=== PATIENT | female | born 1975 | race African-American/Black ===

== ENCOUNTER 2025-02-20 13:48 | Inpatient (IN) | payer MEDICAID ==
[~2025-02-20] VITALS: Ht 167.6 cm; Wt 90.7 kg
[2025-02-20 13:56] VITALS: O2SAT 98
[2025-02-20 15:24] LABS: BASOPHILS % 0.5 % (0.0-2.0); EOSINOPHILS % 0.2 % (0.0-5.0); HEMATOCRIT. 44.9 % (36.0-48.0); HEMOGLOBIN. 14.4 g/dL (12.0-16.0); LYMPHOCYTES % 17.4 % (20.0-50.0); MEAN PLATELET VOLUME 8.4 fl (7.4-10.4); MONOCYTES % 8.2 % (2.0-8.0); NEUTROPHILS % 73.7 % (40.0-76.0); PLATELET 468 x1000/uL (130-400); RED BLOOD CELL COUNT 4.93 mill/uL (4.2-5.4); RED CELL DISTRIBUTION WIDTH 16.8 % (11.6-14.6)
[2025-02-20 15:43] LABS: CREATININE 1.0 mg/dL (0.6-1.0)
[2025-02-20 15:44] LABS: ETHANOL BLOOD < 10 mg/dL (<10); UREA NITROGEN BLOOD 10 mg/dL (9-23)
[2025-02-20 15:45] LABS: ASPARTATE AMINOTRANSFERASE 27 IU/L (<34)
[2025-02-20 15:46] LABS: BILIRUBIN DIRECT 0.2 mg/dL (<=3.0); BILIRUBIN TOTAL 0.5 mg/dL (0.1-1.0); PROTEIN TOTAL 8.3 g/dL (6.0-8.3)
[2025-02-20 16:19] LABS: INFLUENZA TYPE A Presumptive Negative (Pres. Neg.)
[2025-02-20 16:20] LABS: INFLUENZA TYPE B Presumptive Negative (Pres. Neg.)
[2025-02-20 16:21] LABS: RESPIRATORY SYNCYTIAL VIRUS Not Detected (Not Detectd)
[2025-02-20] MEDS: POTASSIUM CHLORIDE 20MEQ/PACKET PO ONE (20:48)
[2025-02-22] MEDS ORDERED: ZOLPIDEM TARTRATE 5MG TABLET PO PRN (11:00)
[2025-02-22] MEDS ORDERED: LORAZEPAM 2MG/ML UD SYRINGE IV PRN (11:00)
[2025-02-22] MEDS ORDERED: HYDROCODONE/ACETAMINOPHEN 5/325MG TABLET PO PRN (11:00)
[2025-02-22] MEDS: OLANZAPINE 2.5MG TABLET PO SCH (11:00)
[2025-02-22] MEDS ORDERED: CLONIDINE 0.1MG TABLET PO PRN (11:00)
[2025-02-22] MEDS ORDERED: MAGNESIUM/ALUMINUM HYDROXIDE/SIMETHICONE 30ML UDC PO PRN (11:00)
[2025-02-22] MEDS ORDERED: ACETAMINOPHEN 325MG TABLET PO PRN (11:00)
[2025-02-22] MEDS ORDERED: ONDANSETRON HCL 4MG/2ML INJ IV PRN (11:00)
[2025-02-22] MEDS: ENOXAPARIN 40MG/0.4ML SYR SUBCUT SCH (12:00)
[2025-02-22] MEDS: LITHIUM CARBONATE 150 MG CAPSULE PO SCH (12:25)
[2025-02-22] MEDS: FLUOXETINE HCL 20MG CAPSULE PO SCH (12:26)
[2025-02-22 13:38] VITALS: BP 145/79; PULSE 20; RESP 18; TEMP 36.2512
[2025-02-22] MEDS: HALOPERIDOL LACTATE 5MG/ML VIAL IM PRN (19:10)
[2025-02-22 20:00] VITALS: BP 128/72; PULSE 124; RESP 16
[2025-02-22] MEDS: QUETIAPINE FUMARATE 200MG TABLET PO SCH (21:00)
[2025-02-23] MEDS: SODIUM CHLORIDE 0.9% 1,000 ML IV SCH (00:20)
[2025-02-23 08:00] VITALS: BP 136/56
[2025-02-23] MEDS: PANTOPRAZOLE SODIUM 40 MG/VIAL IV SCH (09:00)
[2025-02-23 12:00] VITALS: BP 136/66
[2025-02-23 20:00] VITALS: BP 134/88; PULSE 116; RESP 17; TEMP 36.2; O2SAT 97
[2025-02-24] VITALS: BP 159/83; PULSE 113; RESP 18; TEMP 36.6; O2SAT 97
[2025-02-24 04:00] VITALS: BP 160/96; PULSE 125; RESP 18; TEMP 36.4; O2SAT 97
[2025-02-24 07:05] LABS: BASOPHILS % 0.4 % (0.0-2.0); EOSINOPHILS % 0.3 % (0.0-5.0); HEMATOCRIT. 43.9 % (36.0-48.0); HEMOGLOBIN. 14.5 g/dL (12.0-16.0); LYMPHOCYTES % 20.8 % (20.0-50.0); MEAN PLATELET VOLUME 9.0 fl (7.4-10.4); MONOCYTES % 9.0 % (2.0-8.0); NEUTROPHILS % 69.5 % (40.0-76.0); PLATELET 443 x1000/uL (130-400); RED BLOOD CELL COUNT 4.85 mill/uL (4.2-5.4); RED CELL DISTRIBUTION WIDTH 17.0 % (11.6-14.6)
[2025-02-24 07:13] LABS: CREATININE 1.1 mg/dL (0.6-1.0); UREA NITROGEN BLOOD 15 mg/dL (9-23)
[2025-02-24 08:00] VITALS: BP 141/97; PULSE 115; RESP 16; TEMP 36.2; O2SAT 97
[2025-02-24] MEDS: OLANZAPINE 5MG TABLET PO SCH (08:37)
[2025-02-24 12:00] VITALS: BP 123/89; PULSE 128; RESP 16; TEMP 36.6; O2SAT 97
[2025-02-24 16:00] VITALS: BP 123/91; PULSE 122; RESP 19; TEMP 36.2; O2SAT 95
[2025-02-24 20:00] VITALS: BP 157/101; PULSE 104; RESP 18; TEMP 36.4; O2SAT 95
[2025-02-25] VITALS: BP 131/91; PULSE 110; RESP 18; TEMP 36.3; O2SAT 96
[2025-02-25 04:00] VITALS: BP 121/79; PULSE 105; RESP 17; TEMP 36.4; O2SAT 98
[2025-02-25 08:00] VITALS: BP 117/89; PULSE 96; RESP 18; TEMP 36.2; O2SAT 98
[2025-02-25 11:50] LABS: BASOPHILS % 0.9 % (0.0-2.0); EOSINOPHILS % 1.2 % (0.0-5.0); HEMATOCRIT. 42.4 % (36.0-48.0); HEMOGLOBIN. 13.7 g/dL (12.0-16.0); LYMPHOCYTES % 25.1 % (20.0-50.0); MEAN PLATELET VOLUME 9.0 fl (7.4-10.4); MONOCYTES % 7.9 % (2.0-8.0); NEUTROPHILS % 64.9 % (40.0-76.0); PLATELET 370 x1000/uL (130-400); RED BLOOD CELL COUNT 4.68 mill/uL (4.2-5.4); RED CELL DISTRIBUTION WIDTH 16.9 % (11.6-14.6)
[2025-02-25 12:00] VITALS: BP 116/74; PULSE 95; RESP 18; TEMP 36.2; O2SAT 99
[2025-02-25 12:10] LABS: CREATININE 1.1 mg/dL (0.6-1.0); UREA NITROGEN BLOOD 14 mg/dL (9-23)
[2025-02-25 16:00] VITALS: BP 121/86; PULSE 89; RESP 18; TEMP 36.4; O2SAT 100
[2025-02-25] MEDS ORDERED: QUET200T30 PO (17:59)
[2025-02-25] MEDS ORDERED: FLUO-413 PO (17:59)
[2025-02-25] MEDS ORDERED: LITH150C PO (17:59)
[2025-02-26] VITALS: BP 141/86; PULSE 97; RESP 17; TEMP 36.2; O2SAT 97
[2025-02-26 04:00] VITALS: BP 118/79; PULSE 109; RESP 17; TEMP 36.1
[2025-02-26 08:00] VITALS: BP 141/60; PULSE 93; RESP 19; TEMP 36.4; O2SAT 96
[2025-02-26 12:00] VITALS: BP 118/80; PULSE 91; RESP 18; TEMP 36.2; O2SAT 98
[2025-02-26 16:00] VITALS: BP 134/75; PULSE 97; RESP 18; TEMP 36.7; O2SAT 98
[2025-02-26 16:18] LABS: HCG SCREEN NEGATIVE
[2025-02-26 20:00] VITALS: BP 107/60; PULSE 88; RESP 18; TEMP 36.3; O2SAT 97
[2025-02-27 04:00] VITALS: BP 138/77; PULSE 93; RESP 18; TEMP 36.2; O2SAT 96
[2025-02-27 08:00] VITALS: BP 126/76; PULSE 82; RESP 16; TEMP 36.5; O2SAT 97
[2025-02-27 10:28] VITALS: BP 126/76; PULSE 82; RESP 16; TEMP 97.7
[2025-02-27 12:00] VITALS: BP 120/75; PULSE 84; RESP 16; TEMP 36.4; O2SAT 90
== END 2025-02-27 12:30 | DRG 425 ==
LOC: ER 13:48 → EDBD 13:48 → EDBEDREQTM 02-22 10:01 → EDBEDREQ 02-22 10:01 → 8EST 02-22 12:53
PROVIDERS: ADMIT Internal Medicine; ATTEND Internal Medicine
DX: E87.6 Hypokalemia (principal); D72.829 Elevated white blood cell count, unspecified; F20.9 Schizophrenia, unspecified; I10 Essential (primary) hypertension; Z20.822 Contact with and (suspected) exposure to COVID-19
CPT/HCPCS: 36415; 80048; 80076; 80320; 84703; 85025; 87420; 87426; 87804; 99285; J1630; J2470; G0480